=== PATIENT | female | born 1970 | race Caucasian/White ===

== ENCOUNTER → 2021-08-14 | Outpatient (CLI) | payer OTHER | LOC: RAD 11:54 | DX: M79.671 Pain in right foot (principal); S92.911D Unspecified fracture of right toe(s), subsequent encounter for fracture with routine healing | CPT/HCPCS: 73630 ==

== ENCOUNTER → 2021-12-17 | Outpatient (CLI) | payer OTHER | LOC: KOH-I 11:30 | DX: R91.1 Solitary pulmonary nodule (principal) | CPT/HCPCS: 71250 ==

== ENCOUNTER → 2022-03-27 | Outpatient (CLI) | payer OTHER | LOC: HEART 5 09:33 | DX: R07.9 Chest pain, unspecified (principal); Z86.16 Personal history of COVID-19; R06.02 Shortness of breath | CPT/HCPCS: 93306 ==

== ENCOUNTER → 2022-05-07 | Outpatient (CLI) | payer OTHER | LOC: EXRD 11:26 | DX: M54.50 Low back pain, unspecified (principal); M54.6 Pain in thoracic spine; M47.816 Spondylosis without myelopathy or radiculopathy, lumbar region; M47.814 Spondylosis without myelopathy or radiculopathy, thoracic region | CPT/HCPCS: 72070; 72110 ==